=== PATIENT | female | born 1950 | race Two or more races ===

== ENCOUNTER 2021-08-20 08:26 | Emergency (ER) | payer SELFPAY ==
[~2021-08-20] VITALS: Ht 170.2 cm; Wt 81.6 kg
[2021-08-20] MEDS ORDERED: LACTATED RINGER'S 1,000 ML IV ONE (08:45)
[2021-08-20 09:17] LABS: Basophils # (auto) 0.1 10 ^3/uL (0-0.2); Basophils % (auto) 0.9 % (0.0-2.0); Eosinophils # (auto) 0.1 10 ^3/uL (0-0.8); Eosinophils % (auto) 0.9 % (0.0-7.0); Hemoglobin 15.3 g/dL (12.2-16.2); Lymphocytes # (auto) 2.2 10 ^3/uL (0.4-5.4); Lymphocytes % (auto) 27.7 % (10.0-50.0); Mean Corpuscular Hgb Conc. 33.3 g/dL (32.0-36.0); Mean Corpuscular Volume 93.1 fL (80.0-100.0); Monocytes # (auto) 1.1 10 ^3/uL (0-1.3); Neutrophils # (auto) 4.5 10 ^3/uL (1.6-8.6); Neutrophils % (auto) 56.5 % (37.0-80.0); Nucleated Red Blood Cells % 0.1 %; Red Blood Cells 4.94 10^6/uL (4.0-5.20); Red Cell Distribution Width 12.6 % (11.8-14.3)
[2021-08-20 09:40] LABS: Calcium 10.3 mg/dL (8.5-10.1); Potassium 3.4 mmol/L (3.5-5.1)
[2021-08-20] MEDS ORDERED: CLOPIDOGREL BISULFATE 75 MG TAB PO ONE (09:45)
[2021-08-20] MEDS ORDERED: ASPirin 325 MG TAB PO ONE (09:45)
[2021-08-20 09:46] LABS: Albumin 3.5 g/dL (3.4-5.0); BUN/Creatinine Ratio 19.4; Bilirubin, Total 0.8 mg/dL (0.2-1.0); Magnesium 2.1 mg/dL (1.6-2.6); Total Protein 9.1 g/dL (6.4-8.2)
[2021-08-20] MEDS ORDERED: diphenhdrAMINE HCL 50 MG/1 ML VL IV ONE (10:30)
[2021-08-20 12:30] VITALS: BP 139/99
== END 2021-08-20 13:04 | disposition short-term general hospital (02) ==
LOC: ER 08:26
DX: I63.9 Cerebral infarction, unspecified (principal); I10 Essential (primary) hypertension; I48.91 Unspecified atrial fibrillation
CPT/HCPCS: 36415; 36600; 70450; 71045; 80053; 82010; 82805; 83735; 83880; 83930; 84439; 84443; 84484; 85025; 93005; 96374; 99291; J1200

== ENCOUNTER 2024-01-01 19:16 | Inpatient (IN) | payer MEDICARE, OTHER ==
[~2024-01-01] VITALS: Ht 170.2 cm; Wt 94.5 kg
[~2024-01-01 19:16] MED LIST: IRBE150T49 PO
--- NOTE | 2024-01-01 19:38 | ED.PDOC ---
History of Present Illness HPI Comments 73 y/o F, with a Hx of AFIB, CVA, HTN, and hypothyroidism, is BIBA for c/o non- radiating, sternal chest pain, today. Per EMS report, patient endorses on having intermittent onset of pain all day, today, with most recent onset occurring at 1830, this evening. Patient is a poor historian and comments on gabapentin use prior to onset of chest pain in addition to being off her Xarelto for 9 months, due to being unable to afford it. Patient denies having any shortness of breath, palpitations, dizziness, nausea, vomiting, fever, chills, or other associated symptoms or modifiers at this time. 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 Past Medical History PAST MEDICAL HISTORY: AFIB, CVA, HTN, Thyroid (hypothyroidism ) PUMPING SUPERVISOR History: Denies all PUMPING SUPERVISOR Hx Family History Family History: Reviewed,noncontributory to illness Social History Smoker: Non-Smoker Alcohol: Denies ETOH Use Drugs: Denies Drug Use Lives In: Home Constitutional: denies: chills, diaphoresis, fatigue, fever, malaise, sweats, weakness, others EENTM: denies: blurred vision, double vision, ear bleeding, ear discharge, ear drainage, ear pain, ear ringing, eye pain, eye redness, hearing loss, mouth pain, mouth swelling, nasal discharge, nose bleeding, nose congestion, nose pain, photophobia, tearing, throat pain, throat swelling, voice changes, others Respiratory: denies: cough, hemoptysis, orthopnea, SOB at rest, shortness of breath, SOB with excertion, stridor, wheezing, others Cardiovascular: reports: chest pain; denies: dizzy spells, diaphoresis, Dyspnea on exertion, edema, irregular heart beat, left arm pain, lightheadedness, palpitations, PND, syncope, others Gastrointestinal: denies: abdomen distended, abdominal pain, blood streaked bowels, constipated, diarrhea, dysphagia, difficulty swallowing, hematemesis, melena, nausea, poor appetite, poor fluid intake, rectal bleeding, rectal pain, vomiting, others Genitourinary: denies: abnormal vagina bleeding, burning, dyspareunia, dysuria, flank pain, frequency, hematuria, incontinence, pain, , vagina discharge, urgency, others Neurological: denies: dizziness, fainting, headache, left sided numbness, left sided weakness, numbness, paresthesia, pre-existing deficit, right sided numbness, right sided weakness, seizure, speech problems, tingling, tremors, weakness, others Musculoskeletal: denies: back pain, gout, joint pain, joint swelling, muscle pain, muscle stiffness, neck pain, others Integumetry: denies: bruises, change in color, change in hair/nails, dryness, laceration, lesions, lumps, rash, wounds, others Allergic/Immunocompromised: denies: Difficulty Healing, Frequent Infections, Hives, Itching, others Hematologic/Lymphatic: denies: anemia, blood clots, easy bleeding, easy bruising, swollen glands, others Endocrine: denies: excessive hunger, excessive sweating, excessive thirst, excessive urination, flushing, intolerance to cold, intolerance to heat, unexplained weight gain, unexplained weight loss, others Psychiatric: denies: anxiety, bipolar disorder, depression, hopeless, panic disorder, schizophrenia, sleepless, suicidal, others All Other Systems: Reviewed and Negative Physical Exam General Appearance: Moderate Distress HEENT: Normal ENT Inspection, Pharynx Normal, TMs Normal Neck: Full Range of Motion, Non-Tender, Normal, Normal Inspection Respiratory: Chest Non-Tender, Lungs Clear, No Accessory Muscle Use, No Respiratory Distress, Normal Breath Sounds Cardiovascular: Irregular Breast Exam: Deferred Gastrointestinal: No Organomegaly, Non Tender, No Pulsatile Mass, Normal Bowel Sounds, Soft Genitalia: Deferred Pelvic: Deferred Rectal: Deferred Extremities: No calf tenderness, Normal capillary refill, Normal inspection, Normal range of motion, Non-tender, No pedal edema Musculoskeletal : Apperance: Normal Neurologic: Alert, aerospace stress engineer II-XII nml as Tested, No Motor Deficits, Normal Affect, Normal Mood, No Sensory Deficits Cerebellar Function: NOT DONE Reflexes: NOT DONE Skin: Dry, Normal Color, Warm Peripheral Pulses: 3+ Radial (R), 3+ Radial (L) Lymphatic: No Adenopathy Was a procedure done? Was a procedure done?: No EKG EKG : Pulse Rate (adult): 65 [place]: LAD Cardiac Rhythm: Afib Block: None Hypertrophy: None ST: New, Ant, Ischemia, Infarct Differential Dx Considerations may include: WI, ACS, costochondritis, angina, gastritis, gastroenteritis, musculoskeletal pain X-Ray, Labs, Meds, VS Vital Signs Date Time Temp Pulse Resp B/P (MAP) Pulse Ox O2 Delivery O2 Flow Rate FiO2 01/01/24 21:43 72 01/01/24 21:21 67 18 95/64 (74) 91 01/01/24 20:28 68 19 110/81 (91) 91 01/01/24 20:28 68 19 110/81 01/01/24 19:58 64 12 106/63 01/01/24 19:48 Room Air* 0 21 01/01/24 19:46 56 01/01/24 19:38 65 01/01/24 19:28 98.1 65 22 106/74 (85) 96 01/01/24 19:18 65 Lab Test 01/01/24 21:15 01/01/24 19:53 Range/Units Troponin I High Sensitivity 577 *H 13 </=34 ng/L White Blood Count 6.4 4.4-10.8 10^3/uL Red Blood Count 3.80 L 4.0-5.20 10^6/uL Hemoglobin 12.1 L 12.2-16.2 g/dL Hematocrit 36.9 36.0-46.0 % Mean Corpuscular Volume 97.3 80.0-100.0 fL Mean Corpuscular Hemoglobin 31.9 28.0-32.0 pg Mean Corpuscular Hemoglobin Concent 32.8 32.0-36.0 g/dL Red Cell Distribution Width 13.1 11.8-14.3 % Platelet Count 277 140-450 10^3/uL Mean Platelet Volume 9.3 6.9-10.8 fL Neutrophils (%) (Auto) 43.0 37.0-80.0 % Lymphocytes (%) (Auto) 40.3 10.0-50.0 % Monocytes (%) (Auto) 10.6 0.0-12.0 % Eosinophils (%) (Auto) 4.2 0.0-7.0 % Basophils (%) (Auto) 1.9 0.0-2.0 % Neutrophils # (Auto) 2.8 1.6-8.6 10 ^3/uL Lymphocytes # (Auto) 2.6 0.4-5.4 10 ^3/uL Monocytes # (Auto) 0.7 0-1.3 10 ^3/uL Eosinophils # (Auto) 0.3 0-0.8 10 ^3/uL Basophils # (Auto) 0.1 0-0.2 10 ^3/uL Nucleated Red Blood Cells 0.1 % Prothrombin Time 11.0 9.3-11.8 sec Prothrombin Time INR 1.04 0.9-1.15 Activated Partial Thromboplast Time 70.2 *H 24.5-34.5 SEC Sodium Level 139 136-145 mmol/L Potassium Level 3.7 3.5-5.1 mmol/L Chloride Level 107 98-107 mmol/L Carbon Dioxide Level 23 20-31 mmol/L Anion Gap 9 5-15 Blood Urea Nitrogen 19 9-23 mg/dL Creatinine 1.02 0.550-1.02 mg/dL Glomerular Filtration Rate Calc 59 >90 mL/min BUN/Creatinine Ratio 18.6 10.0-20.0 Serum Glucose 289 H 74-106 mg/dL Calcium Level 9.5 8.7-10.4 mg/dL Current Medications Medications (Trade) Dose Ordered Sig/Jimi Route Start Time Stop Time Status Last Admin Sodium Chloride 1,000 ml @ 150 mls/hr Q6H40M ONCE IV 01/01/24 19:30 01/02/24 02:09 01/01/24 19:40 Morphine Sulfate 4 mg ONCE ONCE IV 01/01/24 19:30 01/01/24 19:31 DC 01/01/24 19:58 Ondansetron HCl (Zofran) 4 mg ONCE ONCE IV 01/01/24 19:30 01/01/24 19:31 DC 01/01/24 19:57 Heparin Sodium (Porcine) 3,000 units ONCE ONCE IV 01/01/24 19:30 01/01/24 19:31 DC 01/01/24 19:40 [place] [address] Ph: [phone] DIAGNOSTIC IMAGING Diagnostic Imaging Report : [id number] Signed PATIENT: LOLA CARTER ACCT: [id number] UNIT: [id number] : 1950 LOC: ER ROOM / BED: / AGE / SEX: 73 / F ADM STATUS: REG ER SERVICE 21 ORDERING PHYSICIAN: JAYA HASSAN MD PROCEDURE(s): CXRP - CHEST PORTABLE REASON: sob ORDER NUMBER(s): [id number], ACCESSION NUMBER(s): [id number] CHEST RADIOGRAPH Indication:sob Technique: Single frontal view of the chest was obtained Comparison: CXRP on DOS: 08/20/21 FINDINGS: Lines and Tubes: None Lungs: Poor inspiratory effort with probable atelectasis in both bases. Pleura: No effusion. No pneumothorax. Cardiomediastinal contours: Unremarkable Bones: No acute osseous abnormality. IMPRESSION: 1. Poor inspiratory effort. ATED BY: ORION TATE Jr., DO DICTATED DATE/TIME: 01/01/241946 SIGNED BY: ORION TATE Jr., SIGNED DATE/TIME: 01/01/241946 CC: Patient alert. Complaining of chest pain. EKG does show minor changes. Spoke with Cardiology. Atrial fibrillation. Chronic. Controlled. She is not taking blood thinner. Establish intravenous access. Was given heparin. Moving all extremities. Reviewed her previous visit. Explained to the patient. Continue cardiac monitoring. Chest x-ray reviewed does not show any acute changes. Cardiac marker elevated. Informed cardiology. Time of 1ST Reevaluation: 19:45 Reevaluation 1ST: Unchanged Patient Education/Counseling: Diagnosis, Treatment Family Education/Counseling: No Family Present Departure 1 Departure Time of Disposition: 19:51 Impression: Primary Impression: Chest pain of unknown etiology Additional Impressions: Atrial fibrillation Qualified Codes: I48.0 - Paroxysmal atrial fibrillation NSTEMI (non-ST elevated myocardial infarction) Disposition: ADMITTED INPATIENT Admit to: Med Surg Condition: Guarded Critical Care Note Critical Care Time?: Yes (90 min-critical care time only) Stability Stability form required: No Heart Score Heart Score: Heart Score Response (Comments) Value History Slightly Suspicious 0 EKG Repolarization Disturb 1 Age >65 2 Risk Factors 1 or 2 risk factors 1 Troponin >3 x's Normal limit 2 Total 6 I personally scribed for JAYA HASSAN MD ([email or web address]) on 01/01/24 at 19:38. Electronically submitted by Tera Friedman ([email or web address]). I personally scribed for JAYA HASSAN MD ([email or web address]) on 01/01/24 at 19:58. Electronically submitted by Tera Friedman ([email or web address]). JAYA HASSAN MD Jan 01, 2024 19:38
[2024-01-01] MEDS: HEPARIN SODIUM (PORCINE) 5000 UNITS/ML 1ML VIAL IV ONE (19:40)
[2024-01-01] MEDS: SODIUM CHLORIDE 0.9% 1,000 ML IV ONE (19:40)
--- NOTE | 2024-01-01 19:49 | DVH ---
CHEST RADIOGRAPH Indication:sob Technique: Single frontal view of the chest was obtained Comparison: CXRP on DOS: 08/20/21 FINDINGS: Lines and Tubes: None Lungs: Poor inspiratory effort with probable atelectasis in both bases. Pleura: No effusion. No pneumothorax. Cardiomediastinal contours: Unremarkable Bones: No acute osseous abnormality. IMPRESSION: 1. Poor inspiratory effort.
[2024-01-01] MEDS: ONDANSETRON HCL 4 MG/2 ML VIAL IV ONE (19:57)
[2024-01-01] MEDS: MORPHINE SULFATE 4 MG/ML SYR/VIAL IV ONE (19:58)
[2024-01-01 20:30] LABS: Basophils # (auto) 0.1 10 ^3/uL (0-0.2); Basophils % (auto) 1.9 % (0.0-2.0); Eosinophils # (auto) 0.3 10 ^3/uL (0-0.8); Eosinophils % (auto) 4.2 % (0.0-7.0); Hematocrit 36.9 % (36.0-46.0); Hemoglobin 12.1 g/dL (12.2-16.2); Lymphocytes # (auto) 2.6 10 ^3/uL (0.4-5.4); Lymphocytes % (auto) 40.3 % (10.0-50.0); Mean Corpuscular Hemoglobin 31.9 pg (28.0-32.0); Mean Corpuscular Hgb Conc. 32.8 g/dL (32.0-36.0); Mean Corpuscular Volume 97.3 fL (80.0-100.0); Monocytes # (auto) 0.7 10 ^3/uL (0-1.3); Monocytes % (auto) 10.6 % (0.0-12.0); Neutrophils # (auto) 2.8 10 ^3/uL (1.6-8.6); Nucleated Red Blood Cells % 0.1 %; Platelet Count (auto) 277 10^3/uL (140-450); Red Cell Distribution Width 13.1 % (11.8-14.3); White Blood Cell 6.4 10^3/uL (4.4-10.8)
[2024-01-01 20:49] LABS: Chloride 107 mmol/L (98-107); Potassium 3.7 mmol/L (3.5-5.1); Sodium 139 mmol/L (136-145)
[2024-01-01 20:50] LABS: Anion Gap 9 (5-15); Carbon Dioxide 23 mmol/L (20-31)
[2024-01-01 20:51] LABS: Calcium 9.5 mg/dL (8.7-10.4)
[2024-01-01 20:55] LABS: Glucose 289 mg/dL (74-106)
[2024-01-01 20:56] LABS: BUN/Creatinine Ratio 18.6 (10.0-20.0); Blood Urea Nitrogen 19 mg/dL (9-23); INR 1.04 (0.9-1.15)
[2024-01-01 21:02] LABS: Partial Thromboplastin Time 70.2 SEC (24.5-34.5)
[2024-01-02] VITALS (15 sets, daily range): BP systolic 103–148; BP diastolic 76–97; PULSE 69–92; RESP 10–24; TEMP 97.9–98; O2SAT 91–100
[2024-01-02] MEDS ORDERED: HEPARIN DRIP/D5W 100UNITS/ML 250 ML IV SCH
[2024-01-02] MEDS ORDERED: NITROGLYCERIN 0.4 MG SL TAB SL PRN (02:00)
[2024-01-02] MEDS ORDERED: MORPHINE SULFATE INJ 2 MG/ml SYRG IV PRN (02:00)
[2024-01-02] MEDS ORDERED: ONDANSETRON HCL 4 MG/2 ML VIAL IV PRN (02:00)
[2024-01-02 04:35] LABS: INR 1.01 (0.9-1.15); Partial Thromboplastin Time 25.9 SEC (24.5-34.5); Prothrombin Time 10.7 sec (9.3-11.8)
[2024-01-02] MEDS: SODIUM CHLOR 0.9% PF (SALINE LOCK) 10ML VIAL/SYR IV SCH (06:23)
--- NOTE | 2024-01-02 07:12 | DVHHP2 ---
History of Present Illness Reason for Visit: Chest pain History of Present Illness 73-year-old female presents for evaluation of chest pain. Patient reports a one day history of sharp substernal nonradiating chest pain denies shortness for breath, nausea or vomiting. Denies cough or fever. No other symptoms were reported. Past Medical History CVA, hypertension, thyroid, AFib Past Surgical History Denies Family History Noncontributory Smoke: No ALCOHOL: none Drugs: None Lives: with Family Review of Systems Review of Systems Review of systems are currently negative otherwise addressed in HPI. Allergies: Coded Allergies: Aspirin (Verified Allergy, Unknown, 08/20/21) Penicillins (Verified Allergy, Unknown, 08/20/21) Medications Current Medications Medications Dose Ordered Sig/Jimi Route Start Time Stop Time Status Last Admin Dose Admin Sodium Chloride 10 ml Q8HR IV 01/02/24 06:00 01/02/24 06:23 10 ML Heparin Sodium/ Dextrose 250 ml @ 10.908 mls/ hr [id number] IV 01/02/24 00:00 UNV Clopidogrel Bisulfate 75 mg DAILY PO 01/03/24 10:00 Atorvastatin Calcium 40 mg HS PO 01/02/24 22:00 Aspirin 162 mg DAILY PO 01/02/24 10:00 UNV Metoprolol Succinate 25 mg DAILY PO 01/02/24 10:00 Ondansetron HCl 4 mg Q4HP PRN IV 01/02/24 02:00 Nitroglycerin 0.4 mg Q5MINP PRN SL 01/02/24 02:00 Morphine Sulfate 2 mg Q30M PRN IV 01/02/24 02:00 Exam Vital Signs Vital Signs Date Time Temp Pulse Resp B/P (MAP) Pulse Ox O2 Delivery O2 Flow Rate FiO2 01/02/24 06:00 87 18 115/97 (103) 92 01/02/24 05:55 Room Air* 0 21 01/01/24 19:28 98.1 Exam Gen: 73-year-old female in mild distress Skin: Warm, dry, normal color and texture, no rash. HEENT: Normocephalic atraumatic, mucous membranes moist and pink. Neck: Cervical and supraclavicular nodes normal without enlargement, trachea is midline, thyroid gland is normal without masses. Pulmonary: Clear to auscultation and percussion bilaterally. Cardiac: Regular rate and rhythm. No murmur Abdomen: Soft, nontender, nondistended, bowel sounds present all 4 quadrants, no guarding, no rigidity, no organomegaly. Extremities: No cyanosis, clubbing, no edema Neuro: Cranial nerves II through XII grossly intact, normal affect and speech, no focal motor deficits. Labs/Xrays ORDERING PHYSICIAN: JAYA HASSAN MD PROCEDURE(s): CXRP - CHEST PORTABLE REASON: sob ORDER NUMBER(s): [id number], ACCESSION NUMBER(s): [id number] CHEST RADIOGRAPH Indication:sob Technique: Single frontal view of the chest was obtained Comparison: CXRP on DOS: 08/20/21 FINDINGS: Lines and Tubes: None Lungs: Poor inspiratory effort with probable atelectasis in both bases. Pleura: No effusion. No pneumothorax. Cardiomediastinal contours: Unremarkable Bones: No acute osseous abnormality. IMPRESSION: 1. Poor inspiratory effort. Labs Test 01/02/24 04:05 01/01/24 23:17 01/01/24 19:53 Range/Units Prothrombin Time 10.7 9.3-11.8 sec Prothrombin Time INR 1.01 0.9-1.15 Activated Partial Thromboplast Time 25.9 24.5-34.5 SEC Troponin I High Sensitivity > 37185 *H </=34 ng/L White Blood Count 6.4 4.4-10.8 10^3/uL Red Blood Count 3.80 L 4.0-5.20 10^6/uL Hemoglobin 12.1 L 12.2-16.2 g/dL Hematocrit 36.9 36.0-46.0 % Mean Corpuscular Volume 97.3 80.0-100.0 fL Mean Corpuscular Hemoglobin 31.9 28.0-32.0 pg Mean Corpuscular Hemoglobin Concent 32.8 32.0-36.0 g/dL Red Cell Distribution Width 13.1 11.8-14.3 % Platelet Count 277 140-450 10^3/uL Mean Platelet Volume 9.3 6.9-10.8 fL Neutrophils (%) (Auto) 43.0 37.0-80.0 % Lymphocytes (%) (Auto) 40.3 10.0-50.0 % Monocytes (%) (Auto) 10.6 0.0-12.0 % Eosinophils (%) (Auto) 4.2 0.0-7.0 % Basophils (%) (Auto) 1.9 0.0-2.0 % Neutrophils # (Auto) 2.8 1.6-8.6 10 ^3/uL Lymphocytes # (Auto) 2.6 0.4-5.4 10 ^3/uL Monocytes # (Auto) 0.7 0-1.3 10 ^3/uL Eosinophils # (Auto) 0.3 0-0.8 10 ^3/uL Basophils # (Auto) 0.1 0-0.2 10 ^3/uL Nucleated Red Blood Cells 0.1 % Sodium Level 139 136-145 mmol/L Potassium Level 3.7 3.5-5.1 mmol/L Chloride Level 107 98-107 mmol/L Carbon Dioxide Level 23 20-31 mmol/L Anion Gap 9 5-15 Blood Urea Nitrogen 19 9-23 mg/dL Creatinine 1.02 0.550-1.02 mg/dL Glomerular Filtration Rate Calc 59 >90 mL/min BUN/Creatinine Ratio 18.6 10.0-20.0 Serum Glucose 289 H 74-106 mg/dL Calcium Level 9.5 8.7-10.4 mg/dL Magnesium Level 2.0 1.6-2.6 mg/dL Assessment/Plan Assessment/Plan Assessment NSTEMI Chronic atrial fibrillation Hypertension Plan Admit the patient to [facility] to the hospitalist Cardiology consultation Resume home medications Continue heparin drip Continue treatment per orders. Total critical care time excluding procedures performed is 45 minutes. Plan discussed with: Patient My Orders [facility] Procedure Category Date Status Time Atorvastatin (Lipitor) PHA 01/02/24 In Process 22:00 Aspirin Tablet PHA 01/02/24 Pending 10:00 Metoprolol Xl PHA 01/02/24 In Process Succinate (Toprol Xl) 10:00 * Cardiology Consult CONS 01/02/24 Transmitted 01:54 Platelet Monitoring PAULINO 01/02/24 In Process 01:54 Heparin Per PAULINO 01/02/24 In Process Standardized Proce 01:54 Discontinue All Im PAULINO 01/02/24 In Process Injections 01:54 Admit ADMIT 01/02/24 Transmitted 01:54 Ondansetron Hcl PHA 01/02/24 In Process (Zofran) 02:00 Complete Blood Count LAB 01/03/24 Verified 04:00 Comprehensive LAB 01/03/24 Verified Metabolic Panel 04:00 Echo 2d Mode Cardiac US 01/02/24 Logged DOP 01:54 Condition: Serious [facility] 01/02/24 In Process 01:54 Bedrest With Bathroom [facility] 01/02/24 In Process Privileg 01:54 Nitroglycerin [facility] 01/02/24 In Process Sublingual (Ntrostat 02:00 Morphine Sulfate [facility] 01/02/24 In Process Injection 02:00 Stat Ekg For Chest [facility] 01/02/24 In Process Pain 01:54 Notify Md Of Changes [facility] 01/02/24 In Process From Base 01:54 Lab Nurse For [facility] 01/02/24 In Process 24 Hours 01:54 Emergency Dysrhythmia [facility] 01/02/24 In Process Protocol 01:54 Rhythm Strips Once [facility] 01/02/24 In Process Every Shift 01:54 Oxygen By Nasal RT 01/02/24 Transmitted Cannula 01:54 Date of Service: Jan 02, 2024 Billing Provider: MANJEET SILVEIRA Common Visit Codes: [id number] CARE 30-74 MIN MANJEET SILVEIRA Jan 02, 2024 07:12
--- NOTE | 2024-01-02 07:26 | DVHINCON2 ---
Date of service: Jan 02, 2024 History of Present Illness 73 yo F withx of afib, not on doac 2/2 to cost, HTN, obesity admitted for chest pain. initial ecg was code stemi rule out. pt had low voltages and septal infarct afib. pt had chest pain but it resolved. first trop was elevated and 2nd one was higher. howeer, pt was chest pain free overnight when i spoke to dr hdz. therefore, pt placed on heparin. pt is not a great historian and denies a hx of cad or chf. her chest pain was at least 1 day but suspected maybe longer with septal Q waves Past Medical History reviewed Allergies: Coded Allergies: Aspirin (Verified Allergy, Unknown, 08/20/21) Penicillins (Verified Allergy, Unknown, 08/20/21) Current Medications Current Medications Medications (Trade) Dose Ordered Sig/Jimi Route PRN Reason Start Time Stop Time Status Last Admin Sodium Chloride (Saline Lock Ns) 10 ml Q8HR IV 01/02/24 06:00 01/02/24 06:23 Heparin Sodium/ Dextrose 250 ml @ 10.908 mls/ hr [id number] IV 01/02/24 00:00 UNV Clopidogrel Bisulfate (Plavix) 75 mg DAILY PO 01/03/24 10:00 Atorvastatin Calcium (Lipitor) 40 mg HS PO 01/02/24 22:00 Aspirin 162 mg DAILY PO 01/02/24 10:00 UNV Metoprolol Succinate (Toprol Xl) 25 mg DAILY PO 01/02/24 10:00 Ondansetron HCl (Zofran) 4 mg Q4HP PRN IV NAUSEA / VOMITING 01/02/24 02:00 Nitroglycerin (Ntrostat Sublingual) 0.4 mg Q5MINP PRN SL FOR CHEST PAIN 01/02/24 02:00 Morphine Sulfate 2 mg Q30M PRN IV FOR CHEST PAIN 01/02/24 02:00 Review of Systems 10 pt ros otherwise negative Vital Signs Vital Signs Date Time Temp Pulse Resp B/P (MAP) Pulse Ox O2 Delivery O2 Flow Rate FiO2 01/02/24 06:00 87 18 115/97 (103) 92 01/02/24 05:55 Room Air* 0 21 01/01/24 19:28 98.1 Physical Exam nad s1 s2 irregular diffuse rhonchi abd soft nt/d no edema Labs/Diagnostic Data Labs Test 01/02/24 04:05 01/01/24 23:17 01/01/24 19:53 Range/Units Prothrombin Time 10.7 9.3-11.8 sec Prothrombin Time INR 1.01 0.9-1.15 Activated Partial Thromboplast Time 25.9 24.5-34.5 SEC Troponin I High Sensitivity > 02561 *H </=34 ng/L White Blood Count 6.4 4.4-10.8 10^3/uL Red Blood Count 3.80 L 4.0-5.20 10^6/uL Hemoglobin 12.1 L 12.2-16.2 g/dL Hematocrit 36.9 36.0-46.0 % Mean Corpuscular Volume 97.3 80.0-100.0 fL Mean Corpuscular Hemoglobin 31.9 28.0-32.0 pg Mean Corpuscular Hemoglobin Concent 32.8 32.0-36.0 g/dL Red Cell Distribution Width 13.1 11.8-14.3 % Platelet Count 277 140-450 10^3/uL Mean Platelet Volume 9.3 6.9-10.8 fL Neutrophils (%) (Auto) 43.0 37.0-80.0 % Lymphocytes (%) (Auto) 40.3 10.0-50.0 % Monocytes (%) (Auto) 10.6 0.0-12.0 % Eosinophils (%) (Auto) 4.2 0.0-7.0 % Basophils (%) (Auto) 1.9 0.0-2.0 % Neutrophils # (Auto) 2.8 1.6-8.6 10 ^3/uL Lymphocytes # (Auto) 2.6 0.4-5.4 10 ^3/uL Monocytes # (Auto) 0.7 0-1.3 10 ^3/uL Eosinophils # (Auto) 0.3 0-0.8 10 ^3/uL Basophils # (Auto) 0.1 0-0.2 10 ^3/uL Nucleated Red Blood Cells 0.1 % Sodium Level 139 136-145 mmol/L Potassium Level 3.7 3.5-5.1 mmol/L Chloride Level 107 98-107 mmol/L Carbon Dioxide Level 23 20-31 mmol/L Anion Gap 9 5-15 Blood Urea Nitrogen 19 9-23 mg/dL Creatinine 1.02 0.550-1.02 mg/dL Glomerular Filtration Rate Calc 59 >90 mL/min BUN/Creatinine Ratio 18.6 10.0-20.0 Serum Glucose 289 H 74-106 mg/dL Calcium Level 9.5 8.7-10.4 mg/dL Magnesium Level 2.0 1.6-2.6 mg/dL Assessment nstemi afib non adherence to meds htn obesity HL Plan/Recommendation heparin given recommend LHC for eval, suspected LAD disease check echo admit to icu/misael statin and beta heather pt is rate controlled 40 mins critical care time spent, >50% face to face high risk pt , pt agree to plan after informed consent with me and RN, pt also spoke to ER MD last night Plan discussed with: Patient MISTY VO MD Jan 02, 2024 07:26
[2024-01-02] MEDS: HEPARIN IN NS 1000Units/500mL 1,500 ML ONE (07:59)
[2024-01-02] MEDS: IODIXANOL 320MG/ML 100ML BTL IV ONE (07:59)
[2024-01-02] MEDS: HEPARIN SODIUM (PORCINE) 5000 UNITS/ML 1ML VIAL ONE (08:31)
[2024-01-02] MEDS: VERAPAMIL 2.5MG/ML INJ 2ML VIAL IV ONE (08:31)
[2024-01-02] MEDS: fentaNYL CITRATE 100 MCG/2 ML VL ONE (08:31)
[2024-01-02] MEDS: ANGIOMAX 250 MG VIAL IV ONE (08:31)
[2024-01-02] MEDS: LIDOCAINE 2%HCL (LOCAL ANESTH.) INJ 20ML MDV ONE (08:32)
[2024-01-02] MEDS: SODIUM CHL 0.9% 50 ML ONE (08:32)
[2024-01-02] MEDS: MIDAZOLAM HCL 2MG/2ML 2ml VIAL (1mg/ml) ONE (08:32)
[2024-01-02] MEDS: ASPirin 81 mg TAB ONE (09:00)
[2024-01-02] MEDS: TICAGRELOR 90 MG TAB ONE (09:01)
--- NOTE | 2024-01-02 09:14 | DVHOP2 ---
Operative Report Operative Report CARDIAC UNIFORM CAP OPERATOR PROCEDURE REPORT [place], [place] Date of Service: 01/02/24 Senior Online Marketing Manager: Misty Vo MD PROCEDURES PERFORMED: Coronary angiogram, left heart catheterization, conscious sedation administration and supervision, less than 15 minutes; fluoroscopy use and interpretation. ptca 1 vessel, acute OR intervention, conscious seation 15- 30 mins PREOPERATIVE DIAGNOSES: nstemi POSTOP DIAGNOSIS: nstemi DESCRIPTION OF PROCEDURE: The patient or appropriate family signed informed consent understanding the risks, benefits and alternatives of the procedure, they wished to proceed. The patient was brought to the cardiac cathead operator in n.p.o. state. The patient was prepped in a sterile fashion. Sedation was used per cardiac cath protocol. I administered 2 mL of 2% lidocaine to the right wrist. With an antegrade front wall puncture. I cannulated the right radial artery and placed a 6-Turk[place] Glidesheath slender. N ext, an intra-arterial spasmolytic was administered. Next, a - 6[place] catheter and XXXXX guide and were used for coronary angiogram and LVEDP measurement and pressure pullback. At the completion of procedure, all guides and wires were removed, and there were no immediate complications. FINDINGS: RCA: Moderate vessel off the right sinus of Valsalva, there is no severe flow limiting stenosis. it is non dominant vessel LEFT MAIN: Moderate size left main, it bifurcates into LAD and circumflex. it is patent CIRCUMFLEX: Moderate caliber vessel coming off the left main with no flow limiting stenosis. it is dominant vessel LAD: LAD is a moderate caliber vessel coming of the left main. apical LAD is occluded with embolus noted. napoleon 0 flow INTERVENTION: We decided to proceed with coronary intervention. I started with a 6F _XB3 ___ Guide to intubate the __LM . Angiomax bolus and gtt was started. Following this, I decided to wire using an .014 BMW across the culprit lesion with ease. At this time, we performed balloon angioplasty with a _2.0 x 15 mm balloon by balloon up to __10_ ATMS over __15__ seconds with __2_ number of inflations. Following this, I gave intracoronary nitro . following this, angio showed improvement in occlusion and [place] 2 to 3 flow. the distal LAD opened up very tiny apical lad <1 mm size had remaining thrombus . NAPOLEON pre/post: 0./3 CONCLUSIONS: 1. sp PTCA to distal LAD occlusion likely highly suspicious for coronary embolus for chronic afib and inability to pay for doac , no significant atherosclerosis noted PLAN: Aggressive risk factor modification and medical management for the patient. recommend start doac +- plavix (30 days) MISTY VO MD Jan 02, 2024 09:14
[2024-01-02] MEDS ORDERED: APIXABAN 5 MG TAB PO SCH (10:00)
[2024-01-02] MEDS ORDERED: ASPirin 81 mg TAB PO SCH (10:00)
[2024-01-02] MEDS ORDERED: ATOR-507 PO (13:31)
[2024-01-02] MEDS ORDERED: INSU100S4 SC (13:31)
[2024-01-02] MEDS ORDERED: METO25TA5 PO (13:31)
[2024-01-02] MEDS ORDERED: AMLO1TAB23 PO (13:31)
[2024-01-02] MEDS ORDERED: GABA-1308 PO (13:31)
[2024-01-02] MEDS ORDERED: IRBE300T43 PO (13:31)
--- NOTE | 2024-01-02 15:11 | DVHSR ---
APPROVED REPORT EXAM: Two-dimensional and M-mode echocardiogram with Doppler and color Doppler. Blood Pressure: 115/97 mmHg INDICATION Chest Pain RISK FACTORS Height: 67, Weight: 200 DIMENSIONS LVDd5.1 (3.8-5.7cm)LA (2D)5.8 (1.9-4.0cm)Aortic Root3.2 (2.0-3.7cm) LVDs4.1 (2.5-4.0cm)LA (MM) (1.9-4.0cm)Aortic Cusp Exc2.0 (1.5-2.0cm) EF (%) 40.0 (55-70%)Rt. Atrium5.4 (1.9-4.0cm)Asc. Aorta3.3 cm Mitral Valve MitralMitral Stenosis E wave0.84m/sMV Mean GR.mmHg A wavem/sMV Peak GR.99mmHg E/A ratio0.02D MVAcm2 Aortic Valve Aortic ValveAortic Stenosis V10.78m/Marsha Mean GR.3mmHg V21.21m/Marsha Peak GR.6mmHg LVOT Diameter2.0 (1.8-2.4cm)Doppler AVA2.02cm2 AI P 1/2 Zloz355.53ms Tricuspid Valve TR Velocity2.36m/s [id number] Other Information Technically limited study due to body habitus. Conclusion lvef 35% by visual estimate biatrial enlargement LV anteroseptum is hypoknetic moderate LVH RV dysfunction noted moderate mitral regurg moderate to sever tricuspid regurg mild aortic regurg
--- NOTE | 2024-01-02 15:29 | DVHPN2 ---
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 Patient not on AC due to cost Objective Physical exam Alert, oriented x3 PERRLA CN II-XII intact Mild facial droop, tongue midline clear breath sounds bilaterally S1 S2 RRR no murmur abdomen soft, nontender, no organomegally equal strength bilaterally in upper and lower extremity sensory intact to touch in bilateral upper and lower extremity Lab Elevated troponin Assessment and plan Acute coronary syndrome, NSTEMI Status post POBA on distal LAD Troponin elevation from type 1 [place] AFib not on anticoagulation Diabetes Hypertension Prior CVA with residual of dysarthria and facial droop Allergic to penicillin and aspirin, swelling Continue with Eliquis and Plavix Cardiac consult appreciated Resume metop succinate 25mg Follow up Echo Basal bolus insulin Fingerstick a.c. HS will add merari/arb and aldactone if BP allows tomorrow Diet heart healthy, diabetic DVT prophylaxis on Eliquis Plan discussed with: Patient Date of Service: Jan 02, 2024 Billing Provider: KRISS GRANADO MD Common Visit Codes: [id number] INP/OBS CARE(HIGH) KRISS GRANADO MD Jan 02, 2024 15:29
[2024-01-02] MEDS ORDERED: DEXTROSE (50%) 50ML SYRG IV PRN (18:45)
[2024-01-02] MEDS: ATORVASTATIN 20 MG TAB PO SCH (21:19)
[2024-01-02] MEDS: APIXABAN 5 MG TAB PO SCH (21:19)
[2024-01-02] MEDS: InsuLIN REG 1unit/0.01ml Soln (100units/ml) SC SCH (21:34)
[2024-01-02] MEDS: ACCU-CHEK COMFORT CURVE STRIP VI SCH (21:34)
[2024-01-03] VITALS (8 sets, daily range): BP systolic 103–130; BP diastolic 72–94; PULSE 82–97; RESP 16–17; TEMP 97.7–99.4; O2SAT 92–99
[2024-01-03 07:41] LABS: Basophils # (auto) 0.1 10 ^3/uL (0-0.2); Basophils % (auto) 0.8 % (0.0-2.0); Eosinophils # (auto) 0 10 ^3/uL (0-0.8); Eosinophils % (auto) 0.4 % (0.0-7.0); Hematocrit 36.8 % (36.0-46.0); Hemoglobin 12.2 g/dL (12.2-16.2); Lymphocytes # (auto) 1.7 10 ^3/uL (0.4-5.4); Lymphocytes % (auto) 14.9 % (10.0-50.0); Mean Corpuscular Hemoglobin 32.3 pg (28.0-32.0); Mean Corpuscular Hgb Conc. 33.2 g/dL (32.0-36.0); Mean Corpuscular Volume 97.3 fL (80.0-100.0); Monocytes # (auto) 1.4 10 ^3/uL (0-1.3); Monocytes % (auto) 12.5 % (0.0-12.0); Neutrophils # (auto) 8.1 10 ^3/uL (1.6-8.6); Neutrophils % (auto) 71.4 % (37.0-80.0); Nucleated Red Blood Cells % 0.2 %; Platelet Count (auto) 251 10^3/uL (140-450); Red Blood Cells 3.78 10^6/uL (4.0-5.20); Red Cell Distribution Width 12.9 % (11.8-14.3); White Blood Cell 11.4 10^3/uL (4.4-10.8)
[2024-01-03 07:55] LABS: Alanine Aminotransferase 57 U/L (7-40); Albumin 3.5 g/dL (3.2-4.8); Alkaline Phosphatase 77 U/L (46-116); Anion Gap 10 (5-15); Aspartate Aminotransferase 328 U/L (13-40); BUN/Creatinine Ratio 14.8 (10.0-20.0); Blood Urea Nitrogen 17 mg/dL (9-23); Calcium 9.1 mg/dL (8.7-10.4); Carbon Dioxide 21 mmol/L (20-31); Chloride 108 mmol/L (98-107); Cholesterol 133 mg/dL (< 200); Glucose 193 mg/dL (74-106); HDL Cholesterol 45 mg/dL (40-59); LDL Cholesterol 63 mg/dL (< 100); Potassium 3.8 mmol/L (3.5-5.1); Sodium 139 mmol/L (136-145); Total Protein 6.9 g/dL (5.7-8.2); Triglycerides 170 mg/dL (< 150)
--- NOTE | 2024-01-03 08:35 | DVHPN2 ---
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 Patient not on AC due to cost Patient is seen by me during rounds No active chest pain, echo with reduced ejection fraction Objective Physical exam Alert, oriented x3 PERRLA CN II-XII intact Mild facial droop, tongue midline clear breath sounds bilaterally S1 S2 RRR no murmur abdomen soft, nontender, no organomegally equal strength bilaterally in upper and lower extremity sensory intact to touch in bilateral upper and lower extremity Lab Elevated troponin A1c 7.7 TSH 24 LDL 64 Echo with ejection fraction of 35%, moderate mitral regurgitation, [id number] tricuspid regurgitation Assessment and plan Acute coronary syndrome, NSTEMI Status post POBA on distal LAD Troponin elevation from type 1 [place] AFib not on anticoagulation Diabetes Hypertension Prior CVA with residual of dysarthria and facial droop Allergic to penicillin and aspirin, swelling Heart failure with reduced ejection fraction, NYHA class I Continue with Eliquis and Plavix Cardiac consult appreciated Resume metop succinate 25mg Echo reviewed Basal bolus insulin Fingerstick a.c. HS Start Entresto 24-26 Start Jardiance 10 We will add Aldactone if tolerated Continue with Lipitor 40 Diet heart healthy, diabetic DVT prophylaxis on Eliquis Plan discussed with: Patient My Orders Orders - KRISS GRANADO MD Procedure Category Date Status Time Glucose Blood PHA 01/02/24 In Process (Accu-Chek Comfort 22:00 Insulin R (Human) PHA 01/02/24 In Process (Insulin R) 22:00 Dextrose 50% Syringe PHA 01/02/24 In Process 18:45 Apixaban (Eliquis) PHA 01/02/24 In Process 18:45 Thyroid Panel LAB 01/03/24 Logged 08:29 Date of Service: Jan 03, 2024 Billing Provider: KRISS GRANADO MD Common Visit Codes: [id number] INP/OBS CARE(HIGH) KRISS GRANADO MD Jan 03, 2024 08:35
[2024-01-03] MEDS ORDERED: CLOPIDOGREL BISULFATE 75 MG TAB PO SCH (10:00)
[2024-01-03] MEDS: EMPAGLIFLOZIN 10 MG TAB PO SCH (10:09)
[2024-01-03] MEDS: CLOPIDOGREL BISULFATE 75 MG TAB PO SCH (10:10)
[2024-01-03] MEDS: METOPROLOL SUCCINATE XL 50 MG TAB PO SCH (10:11)
[2024-01-03] MEDS: SACUBITRIL-VALSARTAN 24mg/26mg TAB PO SCH (10:11)
--- NOTE | 2024-01-03 10:34 | ECG ---
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
--- NOTE | 2024-01-03 10:34 | ECG ---
[facility] Test Date: 2024-01-01 Test Time: 19:18:48 Pat Name: LOLA GUTIERREZ Department: ED Room: [facility] Gender: F Cna: BARBARA : 1950 Requested By: JAYA HASSAN Order Number: [id number] Reading MD: Diogo Arboleda Measurements Intervals [place] Rate: 65 P: 0 NE: 0 QRS: -5 QRSD: 110 T: 48 QT: 456 QTc: 475 Interpretive Statements Atrial fibrillation Anterior infarct, acute (LAD) Electronically Signed On 01-06-2024 17:01:56 PST by Diogo Arboleda Please click the below link to view image of tracing.
--- NOTE | 2024-01-03 10:35 | ECG ---
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
--- NOTE | 2024-01-03 12:19 | DVHPN2 ---
Progress Note Date Seen: Jan 03, 2024 Medical Necessity Reason Pt with a Central, PICC or Fol: No Subjective Other Systems: pt feels well Objective vital signs Vital Sign Date Time Temp Pulse Resp B/P (MAP) Pulse Ox O2 Delivery O2 Flow Rate FiO2 01/03/24 10:11 94 116/81 01/03/24 09:00 99.4 17 92 99.4 01/03/24 08:00 Room Air* 0 21 Total Intake and Output 01/02/24 01/02/24 01/03/24 15:00 23:00 07:00 Intake Total 500 ml 600 ml Balance 500 ml 600 ml medications Current Medications Medications Dose Ordered Sig/Jimi Route Start Time Stop Time Status Last Admin Dose Admin Sodium Chloride 10 ml Q8HR IV 01/02/24 06:00 01/03/24 05:31 10 ML Atorvastatin Calcium 40 mg HS PO 01/02/24 22:00 01/02/24 21:19 40 MG Metoprolol Succinate 25 mg DAILY PO 01/02/24 10:00 01/03/24 10:11 25 MG Ondansetron HCl 4 mg Q4HP PRN IV 01/02/24 02:00 Nitroglycerin 0.4 mg Q5MINP PRN SL 01/02/24 02:00 Morphine Sulfate 2 mg Q30M PRN IV 01/02/24 02:00 Clopidogrel Bisulfate 75 mg DAILY PO 01/03/24 10:00 01/03/24 10:10 75 MG Diagnostic Test (Pha) 1 strip ACHS 01/02/24 22:00 01/03/24 06:09 1 STRIP Insulin Human Regular ACHS SC 01/02/24 22:00 01/03/24 06:08 3 UNITS Dextrose 50 ml UD PRN IV 01/02/24 18:45 Apixaban 5 mg BID PO 01/02/24 18:45 01/03/24 10:11 5 MG Empaglifozin 10 mg DAILY PO 01/03/24 10:00 01/03/24 10:09 10 MG Sacubitril/ Valsartan 1 tab BID PO 01/03/24 10:00 01/03/24 10:11 1 TAB Examination: GENERAL:Abnormal, HEENT:Abnormal, LUNGS:Abnormal, CVS:Abnormal, ABDOMEN:Abnormal laboratory and microbiology Laboratory Tests 01/03/24 06:26 Test 01/03/24 06:26 Range/Units Serum Glucose 193 H 74-106 mg/dL Problem List/Assessment/Plan Problem List/Assessment/Plan nstemi cardiac embolism afib chf with low EF pt instructed she cannot miss her doac going forward will need to get eventual social work our outpt help to get her meds cont doac plavix x1 month no asa cont HF meds Plan discussed with: Patient Date of Service: Jan 03, 2024 Billing Provider: MISTY VO MD Common Visit Codes: NOT BILLABLE MISTY VO MD Jan 03, 2024 12:19
[2024-01-04 00:55] VITALS: BP 103/75; PULSE 87; RESP 16; TEMP 97.6; O2SAT 91
[2024-01-04 05:00] VITALS: BP 108/66; PULSE 79; RESP 16; TEMP 97.6; O2SAT 99
--- NOTE | 2024-01-04 07:39 | DVHPN2 ---
Progress Note Date Seen: Jan 04, 2024 Medical Necessity Reason Pt with a Central, PICC or Fol: No Objective vital signs Vital Sign Date Time Temp Pulse Resp B/P (MAP) Pulse Ox O2 Delivery O2 Flow Rate FiO2 01/04/24 05:00 97.6 79 16 108/66 (80) 99 97.6 01/03/24 20:00 Room Air* 0 21 Total Intake and Output 01/03/24 01/03/24 01/04/24 15:00 23:00 07:00 Intake Total 918 ml 200 ml Balance 918 ml 200 ml medications Current Medications Medications Dose Ordered Sig/Jimi Route Start Time Stop Time Status Last Admin Dose Admin Sodium Chloride 10 ml Q8HR IV 01/02/24 06:00 01/04/24 05:46 10 ML Atorvastatin Calcium 40 mg HS PO 01/02/24 22:00 01/03/24 21:17 40 MG Metoprolol Succinate 25 mg DAILY PO 01/02/24 10:00 01/03/24 10:11 25 MG Ondansetron HCl 4 mg Q4HP PRN IV 01/02/24 02:00 Nitroglycerin 0.4 mg Q5MINP PRN SL 01/02/24 02:00 Morphine Sulfate 2 mg Q30M PRN IV 01/02/24 02:00 Clopidogrel Bisulfate 75 mg DAILY PO 01/03/24 10:00 01/03/24 10:10 75 MG Diagnostic Test (Pha) 1 strip ACHS 01/02/24 22:00 01/04/24 05:46 1 STRIP Insulin Human Regular ACHS SC 01/02/24 22:00 01/04/24 06:03 2 UNITS Dextrose 50 ml UD PRN IV 01/02/24 18:45 Apixaban 5 mg BID PO 01/02/24 18:45 01/03/24 21:18 5 MG Empaglifozin 10 mg DAILY PO 01/03/24 10:00 01/03/24 10:09 10 MG Sacubitril/ Valsartan 1 tab BID PO 01/03/24 10:00 01/03/24 21:17 1 TAB Examination: GENERAL:Abnormal, HEENT:Abnormal, LUNGS:Abnormal, CVS:Abnormal, ABDOMEN:Abnormal laboratory and microbiology Laboratory Tests 01/03/24 06:26 Test 01/03/24 06:26 Range/Units Serum Glucose 193 H 74-106 mg/dL Problem List/Assessment/Plan Problem List/Assessment/Plan nstemi cardiac embolism afib chf with low EF pt instructed she cannot miss her doac going forward will need to get eventual social work our outpt help to get her meds cont doac plavix x1 month no asa cont HF meds Plan discussed with: Patient Date of Service: Jan 04, 2024 Billing Provider: MISTY VO MD Common Visit Codes: NOT BILLABLE MISTY VO MD Jan 04, 2024 07:39
[2024-01-04 08:00] VITALS: PULSE 108
[2024-01-04 09:00] VITALS: BP 104/71; PULSE 91; RESP 18; TEMP 98.8; O2SAT 96
[2024-01-04 09:06] LABS: Free Thyroxine Index 1.1 (1.2-4.9); Thyroxine (T4) 4.2 ug/dL (4.5-12.0)
[2024-01-04] MEDS ORDERED: METO25TA93 PO (12:17)
[2024-01-04] MEDS ORDERED: CLOP75TA70 PO (12:17)
[2024-01-04] MEDS ORDERED: ATOR40TA52 PO (12:17)
[2024-01-04] MEDS ORDERED: SACU1TAB PO (12:17)
[2024-01-04] MEDS ORDERED: APIX5TAB PO (12:17)
[2024-01-04] MEDS ORDERED: EMPA1TAB PO (12:17)
[2024-01-04 14:11] VITALS: BP 97/74; PULSE 70; RESP 17; TEMP 98.6; O2SAT 93
[2024-01-04 17:00] VITALS: BP 121/79; PULSE 79; RESP 16; TEMP 98.4; O2SAT 94
--- NOTE | 2024-01-04 19:51 | DVHDS2 ---
Discharge Summary Date of Admission Jan 02, 2024 at 02:04 Date of Discharge: Jan 04, 2024 Labs/Diagnostic Data: Laboratory Results Test 01/04/24 17:14 01/03/24 06:26 01/03/24 06:21 01/02/24 04:05 POC Glucose 141 mg/dl (70-106) White Blood Count 11.4 10^3/uL (4.4-10.8) Red Blood Count 3.78 10^6/uL (4.0-5.20) Hemoglobin 12.2 g/dL (12.2-16.2) Hematocrit 36.8 % (36.0-46.0) Mean Corpuscular Volume 97.3 fL (80.0-100.0) Mean Corpuscular Hemoglobin 32.3 pg (28.0-32.0) Mean Corpuscular Hemoglobin Concent 33.2 g/dL (32.0-36.0) Red Cell Distribution Width 12.9 % (11.8-14.3) Platelet Count 251 10^3/uL (140-450) Mean Platelet Volume 9.2 fL (6.9-10.8) Neutrophils (%) (Auto) 71.4 % (37.0-80.0) Lymphocytes (%) (Auto) 14.9 % (10.0-50.0) Monocytes (%) (Auto) 12.5 % (0.0-12.0) Eosinophils (%) (Auto) 0.4 % (0.0-7.0) Basophils (%) (Auto) 0.8 % (0.0-2.0) Neutrophils # (Auto) 8.1 10 ^3/uL (1.6-8.6) Lymphocytes # (Auto) 1.7 10 ^3/uL (0.4-5.4) Monocytes # (Auto) 1.4 10 ^3/uL (0-1.3) Eosinophils # (Auto) 0 10 ^3/uL (0-0.8) Basophils # (Auto) 0.1 10 ^3/uL (0-0.2) Nucleated Red Blood Cells 0.2 % Sodium Level 139 mmol/L (136-145) Potassium Level 3.8 mmol/L (3.5-5.1) Chloride Level 108 mmol/L (98-107) Carbon Dioxide Level 21 mmol/L (20-31) Anion Gap 10 (5-15) Blood Urea Nitrogen 17 mg/dL (9-23) Creatinine 1.15 mg/dL (0.550-1.02) Glomerular Filtration Rate Calc 51 mL/min (>90) BUN/Creatinine Ratio 14.8 (10.0-20.0) Serum Glucose 193 mg/dL (74-106) Hemoglobin A1c 7.7 % A1C (<5.7) Calcium Level 9.1 mg/dL (8.7-10.4) Total Bilirubin 1.0 mg/dL (0.2-1.0) Aspartate Amino Transferase (AST) 328 U/L (13-40) Alanine Aminotransferase (ALT) 57 U/L (7-40) Alkaline Phosphatase 77 U/L (46-116) Total Protein 6.9 g/dL (5.7-8.2) Albumin 3.5 g/dL (3.2-4.8) Triglycerides Level 170 mg/dL (< 150) Cholesterol Level 133 mg/dL (< 200) LDL Cholesterol 63 mg/dL (< 100) HDL Cholesterol 45 mg/dL (40-59) Thyroid Stimulating Hormone (TSH) 24.01 uIU/mL (0.55-4.78) Free Thyroxine Index 1.1 (1.2-4.9) Thyroxine (T4) 4.2 ug/dL (4.5-12.0) Triiodothyronine (T3) Uptake 26 % (24-39) Prothrombin Time 10.7 sec (9.3-11.8) Prothrombin Time INR 1.01 (0.9-1.15) Activated Partial Thromboplast Time 25.9 SEC (24.5-34.5) Test 01/01/24 23:17 01/01/24 19:53 Troponin I High Sensitivity > 80481 ng/L (</=34) Magnesium Level 2.0 mg/dL (1.6-2.6) Other Laboratory Tests 01/03/24 06:26 Brief Hx & Hospital Course: 73-year-old female prior history of stroke admitted for chest pain, found to have acute coronary syndrome, underwent left heart catheterization, status post POBA on LAD. Echo showed HFrEF. Started on GDMT, to be titrated up as outpatient. Also found to have hypothyroidism. 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 Patient was counseled about treatment plan, medications, possible side effects, patientverbalized understanding. All questions were answered to the best of my ability. This discharge took greater then 30 minutes in planning, reviewing documentation, counseling the patient, and discussing with other team members." ASSESSMENT ASSESSMENT Assessment Acute coronary syndrome, NSTEMI Status post POBA on distal LAD Troponin elevation from type 1 [place] AFib not on anticoagulation Diabetes Hypertension Prior CVA with residual of dysarthria and facial droop Allergic to penicillin and aspirin, swelling Heart failure with reduced ejection fraction, NYHA class I hypothyroidism Date of Service: Jan 04, 2024 Billing Provider: KRISS GRANADO MD Common Visit Codes: [id number] DISCH DAY >30min KRISS GRANADO MD Jan 04, 2024 19:51
== END 2024-01-04 18:36 | disposition home or self-care (01) | DRG 250 ==
LOC: ER 19:16 → EDBD 19:16 → TELE 01-02 02:04 → TELE-WESTW 01-02 13:09
PROVIDERS: ADMIT Nurse Practitioner; ATTEND Student in an Organized Health Care Education/Training Program
PROC: 02703ZZ Dilation of Coronary Artery, One Artery, Percutaneous Approach (ICD-10-PCS; principal; 2024-01-02)
PROC: 4A023N7 Measurement of Cardiac Sampling and Pressure, Left Heart, Percutaneous Approach (ICD-10-PCS; 2024-01-02)
PROC: B211YZZ Fluoroscopy of Multiple Coronary Arteries using Other Contrast (ICD-10-PCS; 2024-01-02)
DX: I21.4 Non-ST elevation (NSTEMI) myocardial infarction (principal); I50.43 Acute on chronic combined systolic (congestive) and diastolic (congestive) heart failure; I48.20 Chronic atrial fibrillation, unspecified; E11.9 Type 2 diabetes mellitus without complications; E03.9 Hypothyroidism, unspecified; E66.9 Obesity, unspecified; I11.0 Hypertensive heart disease with heart failure; I48.0 Paroxysmal atrial fibrillation; I25.10 Atherosclerotic heart disease of native coronary artery without angina pectoris; Z88.0 Allergy status to penicillin; Z88.6 Allergy status to analgesic agent; Z91.199 Patient's noncompliance with other medical treatment and regimen due to unspecified reason; Z86.73 Personal history of transient ischemic attack (TIA), and cerebral infarction without residual deficits; Z79.899 Other long term (current) drug therapy; Z79.4 Long term (current) use of insulin; Z68.31 Body mass index [BMI] 31.0-31.9, adult
CPT/HCPCS: 36415; 71045; 80048; 80053; 80061; 82962; 83036; 83735; 84443; 84484; 85025; 85610; 85730; 92941; 93005; 93306; 93458; 96361; 96374; 96375; 99152; 99291; 99292; G0378; J1815; J2250; J2405; Q9967